=== PATIENT | male | born 1960 | race Caucasian/White ===

== ENCOUNTER 2017-03-10 00:45 | Emergency (ER) | payer OTHER ==
[~2017-03-10] VITALS: Ht 177.8 cm; Wt 97.1 kg
[2017-03-10] MEDS ORDERED: PERCOCET 5/31 TABLET PO (02:21)
[2017-03-10] MEDS ORDERED: VALIUM5 MG PO (02:21)
[2017-03-10 02:43] VITALS: BP 134/85
== END 2017-03-10 02:44 | disposition home or self-care (01) ==
LOC: EME 00:45
DX: M54.16 Radiculopathy, lumbar region (principal); M79.605 Pain in left leg; Z85.72 Personal history of non-Hodgkin lymphomas
CPT/HCPCS: 72131; 99281; 99284; J3010

== ENCOUNTER 2017-12-07 21:07 | Observation (INO) | payer OTHER ==
[~2017-12-07] VITALS: Ht 180.3 cm; Wt 101.7 kg
[~2017-12-07 21:07] MED LIST: PERCOCET 5/31 TABLET PO; VALIUM5 MG PO
[2017-12-07 21:48] LABS: HEMATOCRIT 43.5 % (38.0-50.0); HEMOGLOBIN 15.2 G/DL (12.5-16.6); MCH 32.4 PG (29.0-34.0); MCHC 34.9 G/DL (30.0-36.0); MCV 92.8 FL (86-99); PLATELET COUNT 208 K/uL (156-360); RBC DIS.WIDTH-CV 12.1 % (11.8-14.6); RBC DIS.WIDTH-SD 40.7 % (39-53); RED BLOOD COUNT 4.69 M/uL (4.00-5.50); WHITE BLOOD COUNT 6.8 K/uL (4.1-10.2)
[2017-12-07 21:58] LABS: CHLORIDE 103 mEq/L (99-109); POTASSIUM 4.2 mEq/L (3.7-5.4); SODIUM 139 mEq/L (136-147)
[2017-12-07 21:59] LABS: GLUCOSE 116 mg/dL (70-99)
[2017-12-07 22:03] LABS: CREATININE 0.8 mg/dL (0.6-1.3); GFR ESTIMATE (CALCULATED) > 59 mL/min/ (58.99-99999)
[2017-12-07 22:04] LABS: UREA NITROGEN (BUN) 20 mg/dL (9-23)
[2017-12-07 22:13] LABS: TROP-I INTERPRETATION NEGATIVE; TROPONIN-I < 0.01 ng/mL (0.0-0.30)
[2017-12-07] MEDS ORDERED: ZOCOR20 MG PO (22:51)
[2017-12-07] MEDS ORDERED: MOBIC15 MG PO (22:52)
[2017-12-07] MEDS ORDERED: LO-DOSE ASPIRIN81 M1 PO (22:52)
[2017-12-07] MEDS ORDERED: ONE DAILY1 EAC3 PO (22:52)
[2017-12-08 01:42] VITALS: BP 124/87
[2017-12-08 05:29] LABS: TROP-I INTERPRETATION NEGATIVE; TROPONIN-I < 0.01 ng/mL (0.0-0.30)
[2017-12-08 07:43] VITALS: BP 143/79
[2017-12-08 11:12] LABS: TROP-I INTERPRETATION NEGATIVE; TROPONIN-I < 0.01 ng/mL (0.0-0.30)
[2017-12-08 11:27] VITALS: BP 139/85
[2017-12-08] MEDS ORDERED: PRAVASTATIN SOD40 MG PO (13:39)
[2017-12-08] MEDS ORDERED: FAMOTIDINE20 MG PO (13:39)
[2017-12-08] MEDS ORDERED: COZAAR25 MG PO (16:13)
== END 2017-12-08 17:10 | disposition home or self-care (01) ==
LOC: EME 21:07 → EDOF 12-08 00:33 → 4SOUTH 12-08 01:34
PROVIDERS: Hospitalist; Physician Assistant
DX: R07.9 Chest pain, unspecified (principal); Z82.49 Family history of ischemic heart disease and other diseases of the circulatory system; I10 Essential (primary) hypertension; I44.4 Left anterior fascicular block; E78.5 Hyperlipidemia, unspecified; Z87.891 Personal history of nicotine dependence; Z79.82 Long term (current) use of aspirin; R06.09 Other forms of dyspnea; Z85.72 Personal history of non-Hodgkin lymphomas; Z94.81 Bone marrow transplant status; M19.90 Unspecified osteoarthritis, unspecified site
CPT/HCPCS: 71046; 80048; 84484; 85027; 85379; 93005; 99281; 99285; G0378; J1644